=== PATIENT | female | born 1985 | race Caucasian/White ===

== ENCOUNTER 2017-04-14 19:49 | Emergency (ER) | payer OTHER ==
[~2017-04-14] VITALS: Ht 162.6 cm; Wt 62.1 kg
[2017-04-14 22:00] VITALS: BP 130/72
== END 2017-04-14 21:15 | disposition home or self-care (01) ==
LOC: ED 19:49
DX: N39.0 Urinary tract infection, site not specified (principal); Z79.3 Long term (current) use of hormonal contraceptives

== ENCOUNTER 2017-04-16 16:49 | Emergency (ER) | payer OTHER ==
[~2017-04-16] VITALS: Ht 162.6 cm; Wt 60.0 kg
[2017-04-16 18:39] LABS: PLATELET COUNT 215 x10^3mcL (130-400); RED CELL DISTRIBUTION WIDTH 12.8 % (11.5-14.5)
[2017-04-16 18:42] LABS: BASOPHIL % 0 % (0-2)
[2017-04-16 18:46] LABS: CALCIUM 8.9 mg/dL (8.5-10.1); CARBON DIOXIDE 24.1 mmol/L (21-32); CHLORIDE SERUM 104 mmol/L (98-107); GFR1 > 60 mL/min; GLUCOSE SERUM 105 mg/dL (74-106); POTASSIUM SERUM 3.7 mmol/L (3.5-5.1); SODIUM SERUM 139 mmol/L (136-145)
[2017-04-16 18:50] LABS: ALBUMIN 3.8 g/dL (3.4-5.0); ALKALINE PHOSPHATASE 89 U/L (46-116); ALT/SGPT 21 U/L (14-59); AMYLASE 53 U/L (25-115); AST/SGOT 13 U/L (15-37); BILIRUBIN TOTAL 0.5 mg/dL (0.20-1.00); LIPASE 86 IU/L (73-393)
[2017-04-16 19:09] LABS: microscopic required? YES; urine erythrocyte 3+ (NEGATIVE)
[2017-04-16 21:14] VITALS: BP 113/70
== END 2017-04-16 21:14 | disposition home or self-care (01) ==
LOC: ED 16:49
PROVIDERS: Emergency Medicine
DX: N39.0 Urinary tract infection, site not specified (principal)
CPT/HCPCS: J0696; J2270; J2405; J7030; Q0092

== ENCOUNTER 2019-01-23 19:26 | Emergency (ER) | payer OTHER ==
[~2019-01-23] VITALS: Ht 165.1 cm; Wt 61.2 kg
[2019-01-23 19:32] VITALS: Ht 165.1 cm; Wt 61.2 kg
[2019-01-23 20:29] LABS: BASOPHIL % 0.5 % (0-2); PLATELET COUNT 243 x10^3mcL (130-400); RED CELL DISTRIBUTION WIDTH 12.6 % (11.5-14.5)
[2019-01-23 20:44] LABS: CALCIUM 9.3 mg/dL (8.5-10.1); CARBON DIOXIDE 24.4 mmol/L (21-32); CHLORIDE SERUM 107 mmol/L (98-107); CREATININE SERUM 0.8 mg/dL (0.6-1.0); GFR1 > 60 mL/min; GLUCOSE SERUM 104 mg/dL (74-106); POTASSIUM SERUM 4.1 mmol/L (3.5-5.1); SODIUM SERUM 141 mmol/L (136-145)
[2019-01-23 20:48] LABS: ALBUMIN 3.9 g/dL (3.4-5.0); ALKALINE PHOSPHATASE 86 U/L (46-116); ALT/SGPT 15 U/L (14-59); AST/SGOT 10 U/L (15-37); TOTAL PROTEIN, SERUM 7.6 g/dL (6.4-8.2)
[2019-01-23 21:42] LABS: microscopic required? NO
[2019-01-23 21:54] LABS: urine erythrocyte NEGATIVE (NEGATIVE)
[2019-01-24 02:21] VITALS: BP 121/63
== END 2019-01-24 02:21 | disposition home or self-care (01) ==
LOC: ED 19:26
PROVIDERS: Emergency Medicine
DX: R07.89 Other chest pain (principal)
CPT/HCPCS: 36415; 85378; J1885

== ENCOUNTER 2020-08-11 21:53 | Emergency (ER) | payer OTHER ==
[~2020-08-11] VITALS: Ht 167.6 cm; Wt 60.8 kg
[2020-08-11 21:58] VITALS: Ht 167.6 cm; Wt 60.8 kg
[2020-08-11 22:43] VITALS: BP 133/62
== END 2020-08-11 22:43 | disposition home or self-care (01) ==
LOC: ED 21:53
DX: N30.91 Cystitis, unspecified with hematuria (principal)